=== PATIENT | female | born 1930 | race Caucasian/White ===

== ENCOUNTER 2016-12-15 07:06 | Emergency (ER) | payer MEDICARE, OTHER ==
[~2016-12-15] VITALS: Ht 165.1 cm; Wt 68.2 kg
[~2016-12-15 07:06] MED LIST: ACET325T51 PO; ATEN25TA PO; ATRV10T PO; CALC-766 PO; CHOL10002 PO; CITA20TA11 PO; Docusate Sodium PO; FUR20 PO; HYDR-3939 PO; LORA0.5T PO; LOSA50TA37 PO; MULT1TAB70 PO; NITR100C PO; POLY17PO6 PO; RANI150T11 PO; SITA50TA PO; WARF2.5T82 PO; WARF5TAB7 PO
--- NOTE | 2016-12-15 07:08 | ED.REPORT ---
HPI-Dyspnea / Wheezing Date of Service Dec 15, 2016 ED Provider: The patient is an 86 year old female with history of congestive heart failure, atrial fibrillation on warfarin, diabetes mellitus, hypertension, hyperlipidemia , chronic renal failure, and dementia, who was brought to the emergency department by EMS from [facility] for shortness of breath. Medics were called last night as well but the patient appeared stable and comfortable when they arrived. This morning the patient was sating in the high 80s, tachycardic, and obviously dyspneic. When medics got her up she had a coughing fit and her sats dropped. At this time she is feeling well. She denies fever, chills, chest pain , nausea, vomiting, diaphoresis or lower extremity swelling. Nursing Notes Stated Complaint: DIFFICULTY BREATHING Nursing Notes Reviewed: Yes ([place] not reconciled - on warfarin) Allergies: Coded Allergies: MAURILIO Inhibitors (Verified Allergy, Unknown, 09/21/14) NSAIDS (Non-Steroidal Anti-Inflamma (Verified Allergy, Unknown, 09/21/14) aspirin (Verified Allergy, Unknown, 09/21/14) Scheduled Atenolol (Atenolol) 25 Mg Tablet 25 MG PO DAILY Atorvastatin (Lipitor) 10 Mg Tab 10 MG PO HS Cholecalciferol (Vitamin D3) 1,000 Unit Tablet 1,000 UNIT PO DAILY Citalopram (Citalopram) 20 Mg Tablet 20 MG PO DAILY Furosemide (Furosemide) 20 Mg Tab 20 MG PO DAILY Hydralazine (Hydralazine) 25 Mg Tablet 25 MG PO TID Losartan Potassium (Losartan Potassium) 50 Mg Tablet 50 MG PO DAILY Multivitamin (Multivitamins) 1 Each Tablet 1 EACH PO DAILY Nitrofurantoin Macrocrystal (Nitrofurantoin Macrocrystal) 100 Mg Capsule 100 MG PO BID at 0500 and 1700 DC on 03/29/2015 Polyethylene Glycol 3350 (Miralax) 17 Gm Powd.pack 17 GM PO DAILY Potassium Chloride (Potassium Chloride) 10 Meq Capsule.er 10 MEQ PO DAILY TAKE WITH FOOD Ranitidine HCl (Ranitidine) 150 Mg Tablet 150 MG PO DAILY Sitagliptin Phos (Januvia) 50 Mg Tablet 50 MG PO DAILY Warfarin Sodium (Warfarin Sodium) 2.5 Mg Tablet 2.5 MG PO /Mon Warfarin Sodium (Warfarin Sodium) 5 Mg Tablet 5 MG PO ///MON/MON Scheduled PRN ([Docusate Sodium]) 100 MG CAPSULE 100 MG PO BID PRN PRN For Constipation Acetaminophen (Acetaminophen) 325 Mg Tablet 650 MG PO Q4 PRN PRN For Pain Calcium Carbonate (Calcium) 500 Mg Tab.chew 500 MG PO BID PRN PRN For Pain Lorazepam (Lorazepam) 0.5 Mg Tablet 0.25 MG PO TID PRN PRN For Insomnia General Time Seen by MD: 07:08 Chief Complaint Shortness of breath Hx Obtained From: Patient, EMS Arrived By: Ambulance Sudden in Onset?: Yes Onset Occurred: 1 - 4 hours ago Symptom Duration: Since onset Location: : None Severity: Current: No pain currently Severity: Maximum: No pain Recent Healthcare: No recent hospitalization Past Medical History Past Medical History Notes: Family contacts: Amadou (son): [phone] (cell), (work cell), (home) Ashley: [phone] Past Medical History Atrial fibrillation, on warfarin Hypertension Hyperlipidemia Dementia Type II diabetes next like chronic renal insufficiency History of CVA History of carotid stenosis COMFORT CARE PER [facility] Chronic renal failure Dementia Reports: Congestive heart failure, Diabetes mellitus, Hyperlipidemia, Hypertension, Stroke Smoking History Former Smoker Social History COMFORT CARE PER [facility] Lives [facility] the [facility] Other Social History: Lives in [facility], Local resident Ambulatory Status Independent Review of Systems Constitutional: Denies: Chills, Fever Respiratory: Reports: Dyspnea on exertion, Non-productive cough, Shortness of breath Cardiovascular: Denies: Chest pain Musculoskeletal: Denies: Extremity swelling Complete sys rev & neg: except as marked. GI: Denies: Diarrhea, Nausea, Vomiting Physical Exam Initial Vital Signs Vital Signs (First) Date Time Temp Pulse Resp B/P Pulse Ox O2 Delivery O2 Flow Rate FiO2 12/15/16 07:10 36.8 123 42 160/52 95 Nasal Cannula 4 Initial VS: Reviewed Head / Eyes: Atraumatic, Normocephalic, PERRL ENT: Mucous membranes moist, Conjunctiva normal, No scleral icterus Abdomen / GI: Soft, Non-tender, No guarding, No rebound, No distention Lymphatic: No lymphadenopathy Extremities: Vascular intact, Neuro intact, No swelling, No tenderness Skin: Warm, Dry, No cyanosis Neurologic: Alert, Oriented, Nonfocal Psychiatric: Mood/affect normal, Behavior normal, Normal thought content General/Constitutional: Awake, No acute distress, Cooperative Alertness: Positive: Confused Demented female who is unable to give any useful history. States she has no complaints. She does not appear in distress. Neck: Atraumatic, Supple, No meningismus, Full range of motion, No swelling, Non-tender, No masses Diminished Breath Sounds: Positive: Decreased R She is not visibly dyspneic but was when medics arrived. She has a few crackles and poor air movement. Cardiovascular: Heart rate NL Heart Rate / Rhythm: Positive: Irreg irregular rhythm, Negative: Tachycardia Lower Extremity / Pelvis / MS: Neurologic intact, Vascular intact, No edema Interpretation & Diagnostics Lab Results Interpretation Result Diagram: 12/15/16 0715 12/15/16 0715 Test 12/15/16 07:15 White Blood Count 3.6th/mm3 (3.8-10.1) Red Blood Count 4.51mil/mm3 (3.90-5.20) Hemoglobin 13.4g/dL (12.0-15.6) Hematocrit 42.9% (35.0-46.0) Mean Corpuscular Volume 95.1fL (81-100) Mean Corpuscular Hemoglobin 29.7pg (27.0-35.0) Mean Corpuscular Hemoglobin Concent 31.2% (32.0-37.0) Red Cell Distribution Width 14.0% (12.3-15.4) Platelet Count 184bil/L (150-400) Neutrophils (%) (Auto) 51.4% (40-74) Lymphocytes (%) (Auto) 19.4% (14-46) Monocytes (%) (Auto) 25.0% (4-12) Eosinophils (%) (Auto) 2.8% (0-5) Basophils (%) (Auto) 0.8% (0-3) Prothrombin Time 22.1sec (8.1-12.5) Prothromb Time International Ratio 2.04ratio Sodium Level 140mEq/L (134-144) Potassium Level 4.6mEq/L (3.5-5.2) Chloride Level 101mEq/L (97-108) Carbon Dioxide Level 23mmol/L (18-29) Blood Urea Nitrogen 35mg/dL (8-27) Creatinine 1.86mg/dL (0.57-1.00) Estimat Glomerular Filtration Rate 37mL/min (>59) Glucose Level 195mg/dL (60-99) Lactic Acid Level 2.2mmol/L (0.4-2.0) Calcium Level 10.1mg/dL (8.5-10.1) Total Bilirubin 0.5mg/dL (0.0-1.2) Aspartate Amino Transf (AST/SGOT) 16U/L (0-50) Alanine Aminotransferase (ALT/SGPT) 10U/L (0-32) Alkaline Phosphatase 109U/L (25-165) Troponin T 0.026ug/L (0.0-0.011) Pro-B-Type Natriuretic Peptide 49833dx/mL (0-738) Total Protein 7.3g/dL (6.4-8.4) Albumin 3.9g/dL (3.4-5.0) Lab Results Interpretation: CBC mild leukopenia CMP slightly worsening renal insufficiency ProBNP is significantly elevated from previous Troponin marginally elevated INR therapeutic ECG Interpretation ECG Interpretation: Atrial fibrillation RBBB Unchanged compared to EKG from 09/2014 Time: 08:38 Interpreted by: ED physician X-Ray Chest Interpretation Chest Xray Interpretation: Right sided pleural effusion. Findings are suspicious for pneumonia vs. CHF. View: Portable, 1 view Interpretation / Wet Read by: Wet read ED physician Re-Eval/Medical Decision Med Decision/Clinical Course This is an 86-year-old female's really demented sent in for [facility] from increasing shortness of breath. The patient is comfort care, but medics were called last night due to increasing shortness of breath came out and evaluated her but she clinically appeared well in no discomfort. There is an call back again this morning she seemed to have worsening shortness breath and this time she is visibly dyspneic, and so was brought in. However on arrival she now feels that her. The patient has no complaints during her ED stay, and states she feels okay-she is seemingly demented and does not remember anything and cannot provide any useful history. She has a a chest x-ray reveals a new pleural effusion on the right side. The initial question was was of some pneumonia versus CHF she does have a cardiac history. She is not febrile, does not have an elevated white count, and ultimately her proBNP has returned and is much more elevated compared to previous valve levels, the troponins marginally elevated, and he strongly argue that it is a cardiac etiology. She had blood cultures and received antibiotics while we are trying to sort this out. And received a dose of Lasix and diuresed and states that she feels better for what it is worth. Overall workup in the N suggest new/worsening congestive heart failure. Since regular power of transactional attorney as the daughter who is currently out of the country in [place]. Ultimately is able to reach the son brings discussed the situation, as her trying to sort out the best disposition options for managing her comfort given she has a new pleural effusion and questionable abilities to manage this at the bridge, we discussed bringing her into the hospital initially to facilitate her comfort management given his concern was repeated trips back and forth given already she has had too numerous visits in 12 hours. However another friend, is also been involved in her care presented with a lengthy detailed email power of transactional attorney who is the daughter outlining the recommendations, and actual interest in pursuing hospice. Entire focus is to remain on comfort, and to try and avoid hospitalization. This is reasonable and appropriate. Once this was identified and on further discussion with the son, I have the FOOT ORTHOPEDIST involved regarding the patient set up for hospice-and in this setting her much more comfortable discharging her back to the [facility]. The plan is hospice enrollment, possibly increase her Lasix slightly different from 20 mg daily to 40 mg daily for the next 5 days, and for those 5 days have added 10 mEq potassium supplement. Also notified the PCP Dr. schaeffer the plan to patient and hospice. Signed Amadou, family members are all content with this plan. The patient is being discharged back to the [facility] in stable condition. Source of Hx: Old records, EMS Re-Evaluation/Progress #1: Time of Eval: 08:12 Re-Evaluation/Progress Note: Left a message for the patient's daughter who is also her POA. Re-Evaluation/Progress #2: Time of Eval: 08:32 Re-Evaluation/Progress Note: Spoke with the patient's son. He is okay with the plan to admit the patient. Re-Evaluation/Progress #3: Time of Eval: 08:42 Re-Evaluation/Progress Note: Discussed the patient's case with her family friend who states the patient's daughter is out of the country. The daughter requests that the patient goes back to the [facility] if possible. Re-Evaluation/Progress #4: Time of Eval: 11:30 Re-Evaluation/Progress Note: Hospice staff met with the patient. They have established a plan and are okay with her being discharged [facility] if she is medically stable. Consultation #1: Consulted With: chisel worker Call Returned at: 10:19 Note: ED social welfare administrator discussed the patient's case with hospice. They will come and evaluate the patient at 1130. The social welfare administrator discussed this plan for the patient's family members. Everyone is in agreement with the plan. Consultation #2: Referral / Consult Name: Harman Cmap MD Consulted With: Primary care physician Call Returned at: 12:42 Ginner: Will see in office, Agrees with eval, Agrees with plan Counseled Regarding: Diagnosis, Lab results, Need for follow-up, When/why to return to ED Discharge & Departure Departure Notes PATIENT IS COMFORT CARE Impression: Primary Impression: Shortness of breath Additional Impressions: CHF (congestive heart failure) Congestive heart failure type: unspecified congestive heart failure type Congestive heart failure chronicity: unspecified congestive heart failure chronicity Qualified Code: I50.9 - Heart failure, unspecified Pleural effusion, right Anticoagulated on warfarin Disposition: Home Discharge Condition All VS Reviewed: Yes Condition: Stable Additional Instructions: 1. She has developed a right sided pleural effusion causing the shortness of breath. Her tests suggest it is from congestive heart failure. (Initial testing was unclear - pneumonia vs. CHF, so she received a dose of antibiotics, but further labratory argues it is indeed CHF) 2. Increase her furosemide to 20mg twice a day for the next 5 days. 3. Give an dose of potassium 10 MEq daily for the next 5 days 4. We are enrolling her in hospice so that the focus of her care remains comfort management. 5. Return if new or worsening symptoms. Referrals: Harman Camp MD (PCP) Payal Attestation Portions of this note were transcribed by Sharron Meraz. I, Dr. Hart personally performed the history, physical exam and medical decision-making; I reviewed and confirmed the accuracy of the information in the transcribed note. Signed by: Payal Kulkarni, 12/15/2016 at 1245. copies to: Harman Camp MD, Matthew F MD Dec 15, 2016 07:08 Kt,Sharron Stephens Dec 15, 2016 07:13
[2016-12-15 07:10] VITALS: BP 160/52; PULSE 123; RESP 42; O2SAT 95
[2016-12-15 07:34] LABS: BASOPHILS % (AUTO) 0.8 % (0-3); EOSINOPHILS % (AUTO) 2.8 % (0-5); Mean Corpuscular Hemoglobin 29.7 pg (27.0-35.0); Mean Corpuscular Volume 95.1 fL (81-100); NEUTROPHILS % (AUTO) 51.4 % (40-74); Platelet Count 184 bil/L (150-400)
[2016-12-15 07:39] VITALS: BP 143/73; PULSE 124; RESP 36; O2SAT 94
[2016-12-15 07:50] LABS: INR 2.04 ratio
[2016-12-15] MEDS ORDERED: Azithromycin Inj 500 MG in Dextrose 5% w/Vial Mate 250 ML IV ONE (08:15)
[2016-12-15] MEDS ORDERED: Furosemide 10 mg/mL 4 mL Inj IVPUSH ONE (08:15)
[2016-12-15] MEDS ORDERED: cefTRIAXone Inj 2,000 MG in Dextrose 5% Minibag Plus 50 ML IV ONE (08:15)
[2016-12-15 08:37] LABS: TROPONIN T 0.026 ug/L (0.0-0.011)
[2016-12-15 08:56] VITALS: BP 126/90; PULSE 113; RESP 30; O2SAT 96
--- NOTE | 2016-12-15 09:38 | DRSVH ---
PROCEDURE: X-RAY CHEST ONE VIEW, PORTABLE ([id number]) INDICATIONS: DIFFICULTY BREATHING TECHNIQUE: One view of the chest was acquired. COMPARISON: None. FINDINGS: Surgical changes and devices: None. Lungs and pleura: Exam is limited by technique. Within these limits, no pleural effusions or pneumot horax. Lungs are clear. Mediastinum: Mediastinal contours appear normal. Heart size is normal. Bones and chest wall: No suspicious bony lesions. Overlying soft tissues appear unremarkable. IMPRESSION: Mild interstitial prominence otherwise no definite acute cardiopulmonary disease is seen. Dictated by: Vito Washington [facility] Interpreted: Thais Zamarripa MD on 12/15/2016 at 9:37 Transcribed by: GINNY on 12/15/2016 at 9:37 Approved by: Thais Zamarripa MD, PhD on 12/15/2016 at 16:50
[2016-12-15 11:23] VITALS: BP 126/57; PULSE 100; RESP 26; O2SAT 98
[2016-12-15] MEDS ORDERED: POTA10CA42 PO (12:29)
[2016-12-15 14:07] VITALS: BP 124/62; PULSE 94; RESP 20; O2SAT 96
== END 2016-12-15 14:08 | disposition home or self-care (01) ==
LOC: EDBD 07:06 → SED 07:06
DX: R06.02 Shortness of breath (principal); J90 Pleural effusion, not elsewhere classified; I13.0 Hypertensive heart and chronic kidney disease with heart failure and stage 1 through stage 4 chronic kidney disease, or unspecified chronic kidney disease; I50.9 Heart failure, unspecified; N18.9 Chronic kidney disease, unspecified; E11.59 Type 2 diabetes mellitus with other circulatory complications; I48.91 Unspecified atrial fibrillation; E78.5 Hyperlipidemia, unspecified; F03.90 Unspecified dementia, unspecified severity, without behavioral disturbance, psychotic disturbance, mood disturbance, and anxiety; Z86.73 Personal history of transient ischemic attack (TIA), and cerebral infarction without residual deficits; Z79.01 Long term (current) use of anticoagulants; Z87.891 Personal history of nicotine dependence; Z88.8 Allergy status to other drugs, medicaments and biological substances
CPT/HCPCS: 36415; 71010; 80053; 83605; 83880; 84484; 85025; 85610; 87040; 90791; 93005; 96365; 96367; 96375; 99285; J0456; J0696; J1940